=== PATIENT | male | born 1995 | race Caucasian/White ===

== ENCOUNTER 2020-09-16 21:22 | Emergency (ER) | payer SELFPAY ==
[~2020-09-16] VITALS: Ht 188 cm; Wt 114.3 kg
[2020-09-16] MEDS ORDERED: IV NORMAL SALINE 1000 ML BAG IV ONE (21:45)
[2020-09-16] MEDS ORDERED: FOLIC ACID 5 MG/ML VIAL IV ONE ×2 (21:45→21:51)
[2020-09-16] MEDS ORDERED: THIAMINE HCL 200 MG/2 ML VIAL IV ONE (21:45)
[2020-09-16] MEDS ORDERED: THIAMINE HCL 200 MG/2 ML VIAL ONE (21:52)
[2020-09-16] MEDS ORDERED: MAGNESIUM SULFATE/D5W 100 ML ONE ×2 (21:52→23:47)
[2020-09-16 21:53] LABS: BASOPHILS % (AUTO) 0.4 % (0.0-2.0); EOSINOPHILS # (AUTO) 0.2 K/uL (0.0-0.7); EOSINOPHILS % (AUTO) 4.5 % (0.0-7.0); HEMATOCRIT 41.4 % (36.7-47.1); HEMOGLOBIN 14.3 g/dL (12.5-16.3); LYMPHOCYTES # (AUTO) 2.2 K/uL (20.0-40.0); LYMPHOCYTES % (AUTO) 39.3 % (20.5-51.5); MEAN CORPUSCULAR HEMOGLOBIN 32.1 uug (23.8-33.4); MEAN CORPUSCULAR HGB CONC 35 g/dL (32.5-36.3); MONOCYTES # (AUTO) 0.3 K/uL (2.0-10.0); MONOCYTES % (AUTO) 6.3 % (0.0-11.0); NEUTROPHILS # (AUTO) 2.7 K/uL (1.8-8.9); NEUTROPHILS % (AUTO) 49.5 % (38.5-71.5); PLATELET COUNT (AUTO) 274 K/uL (152-348); RED BLOOD CELL COUNT(AUTO) 4.45 MIL/uL (4.06-5.63); WHITE BLOOD COUNT (AUTO) 5.5 K/uL (3.6-10.2)
[2020-09-16] MEDS: MAGNESIUM SULFATE/D5W 100 ML IV SCH ×2 (21:56→22:00)
[2020-09-16 22:00] LABS: ALANINE AMINOTRANSFERASE 92 U/L (16-63); ALKALINE PHOSPHATASE 98 U/L (50-136); ASPARTATE AMINOTRANSFERASE 76 U/L (15-37); BILIRUBIN,DIRECT 0.1 mg/dL (0.0-0.2); BILIRUBIN,TOTAL < 0.1 mg/dL (0.2-1.0); CARBON DIOXIDE 26 mmol/L (21-32); CHLORIDE 101 mmol/L (98-107); GLUCOSE 92 mg/dL (74-106); POTASSIUM 3.6 mmol/L (3.5-5.1); TOTAL PROTEIN, SERUM 7.7 g/dL (6.4-8.2); UREA NITROGEN, BLOOD 13 mg/dL (7-18)
[2020-09-16] MEDS ORDERED: KETAMINE HCL 500 MG/10 ML INJ IV ONE (22:00)
[2020-09-16] MEDS ORDERED: KETAMINE HCL 500 MG/10 ML INJ ONE ×3 (22:10→23:19)
[2020-09-16 22:25] LABS: CREATINE KINASE, TOTAL 428 U/L (39-308); LIPASE 143 U/L (73-393)
[2020-09-16 22:29] LABS: ETHANOL 84 MG/DL (0-0)
[2020-09-16] MEDS ORDERED: KETAMINE HCL 500 MG/10 ML INJ IM ONE ×2 (22:30→23:15)
--- NOTE | 2020-09-16 23:00 | NUR ---
This 25 year old male presents to the ED accompannied by the [employer] officers who have him in custody. He was arrested for felony vandalism at his Rehab Facility ([facility]). Neuro chao this patient is extremely altered. He is under the influence of (likely) multiple different drugs + alcohol. He is agitated, shouting, incoherant, and delusional. Patient is Sinus Rhythm/Sinus Tachy on the monitor and the 12 Lead EKG. I cannot get an accurate assessment done due to the patients mindstate. On Room Air patient is saturating >94% consistently. No appearance of SOB or Dyspnea. Patient has urinated on himself and the bed. No reports of constipation or diarrhea.
[2020-09-17] MEDS ORDERED: ONDA4TAB11 PO (00:44)
[2020-09-17] MEDS ORDERED: VENL150T PO (00:44)
[2020-09-17] MEDS ORDERED: BUPR8TAB4 SL (00:44)
[2020-09-17] MEDS ORDERED: QUET100T PO (00:44)
[2020-09-17] MEDS ORDERED: OMEP20TA5 PO (00:44)
--- NOTE | 2020-09-17 01:00 | NUR ---
Patient has ripped off at least 6 Pulse Oximeters. Unable to keep the EKG Electrodes on due to patients constant movement. Vital signs stable at this moment.
--- NOTE | 2020-09-17 02:30 | NUR ---
Patient discharged in the custody of Officer Nery (Badge #[id number]) at this time. Medically cleared by ER MD Dr. Basurto. Stable Condition. Ambulatory. All belongings + medications taken by the officers.
[2020-09-17 03:24] VITALS: BP 137/89
== END 2020-09-17 02:30 ==
LOC: ER 21:27
DX: R45.1 Restlessness and agitation (principal); F10.129 Alcohol abuse with intoxication, unspecified; Y90.4 Blood alcohol level of 80-99 mg/100 ml; R74.01 Elevation of levels of liver transaminase levels; R03.0 Elevated blood-pressure reading, without diagnosis of hypertension; Z88.5 Allergy status to narcotic agent
CPT/HCPCS: 36415; 70450; 72125; 80048; 80076; 80320; 82550; 83690; 85025; 93005; 96365; 96366; 96375; 96376; 99285; J3411; J3475 ×2; J3490 ×4; G0480